=== PATIENT | male | born 1980 | race African-American/Black ===

== ENCOUNTER 2018-02-27 11:34 | Emergency (ER) | payer MEDICAID ==
[~2018-02-27] VITALS: Ht 180.3 cm; Wt 82.0 kg
[2018-02-27 11:37] VITALS: BP 131/67
[2018-02-27] MEDS ORDERED: LIDOCAINE HCL/PF 1% 10 MG/ML 5ML VIAL IJ ONE (14:00)
[2018-02-27] MEDS ORDERED: IBUPROFEN 600MG TABLET PO ONE (14:00)
[2018-02-27] MEDS ORDERED: BACITRACIN ZINC OINT UDPKT TOP ONE (14:00)
== END 2018-02-27 14:26 | disposition home or self-care (01) ==
LOC: ER 12:38
DX: S01.81XA Laceration without foreign body of other part of head, initial encounter (principal); W22.8XXA Striking against or struck by other objects, initial encounter; Y93.89 Activity, other specified; Y92.89 Other specified places as the place of occurrence of the external cause; Y99.8 Other external cause status
CPT/HCPCS: 99282; J3490

== ENCOUNTER 2020-07-12 21:35 | Emergency (ER) | payer MEDICAID ==
[~2020-07-12] VITALS: Ht 185.4 cm; Wt 84.0 kg
[2020-07-12] MEDS ORDERED: CLOT15CR27 TP (22:20)
[2020-07-12] MEDS ORDERED: IBUP-2029 MT (22:20)
[2020-07-12 22:45] VITALS: BP 105/77
== END 2020-07-12 22:45 | disposition home or self-care (01) ==
LOC: ER 21:35
DX: B35.3 Tinea pedis (principal); Z79.899 Other long term (current) drug therapy
CPT/HCPCS: 99282